=== PATIENT | female | born 1935 | race Caucasian/White ===

== ENCOUNTER 2021-07-09 05:08 | Emergency (ER) | payer MEDICARE, OTHER, SELFPAY ==
[2021-07-09] VITALS (19 sets, daily range): BP systolic 150–173; BP diastolic 56–79; PULSE 67–81; RESP 14–23; TEMP 37.6; O2SAT 95–100
--- NOTE | ~2021-07-09 | XR_ITS ---
EXAMINATION: XR chest 1V portable EXAM DATE: 07/09/2021 05:48 INDICATION: Transient alteration of awareness. TECHNIQUE: Portable AP frontal chest x-ray was obtained. There is no prior study for comparison. FINDINGS: There is a dual lead pacemaker/AICD seen with leads projecting over the expected locations of the right atrial appendage and right ventricle. The lungs are clear. There are no pleural effusio ns. The cardiomediastinal silhouette is prominent but magnified on this AP technique. There is no pneumothorax suspected. The bones and soft tissues are unremarkable. IMPRESSION: No acute cardiopulmonary findings. Reviewed, dictated and finalized at location A. ER STRAIGHTENER
--- NOTE | ~2021-07-09 | CT_ITS ---
EXAMINATION: CT brain wo con DATE: 07/09/2021 05:44 INDICATION: Altered mental status. TECHNIQUE: Computed tomography (CT) of the head was performed without intravenous contrast. The mA wa s adjusted according to patient size. Iterative reconstruction technique was employed. The dose-lengt h product was 605.33 mGy-cm. COMPARISON: None FINDINGS: There is an acute intraparenchymal hematoma involving left frontal lobe measuring 7 x 4.6 x 6.2 cm. There is adjacent subarachnoid hemorrhage in the left frontotemporal sulci. There is a left- sided frontotemporal parietal subdural hematoma that is mixed hyperdense and hypodense relative to gr ay matter with maximum thickness of 9 mm. There is chronic encephalomalacia involving inferior left t emporal lobe. There is chronic encephalomalacia involving right parietal temporal occipital region wi th ex vacuo dilatation of trigone and temporal horn of right lateral ventricle. There is chronic ence phalomalacia in right frontal lobe. There is 13 mm rightward subfalcine herniation. There is left-hayley ed uncal herniation. There is no acute ischemic infarct or abnormal mass lesion. There is mild mucosa l thickening in the paranasal sinuses. There are likely changes of ocular lens replacement surgeries. The mastoid air cells are normal. There are changes of right-sided craniotomy. IMPRESSION: 1. Acute intraparenchymal hematoma in left frontal lobe. Acute left frontotemporal subarachnoid hemor rhage. Left frontotemporal parietal subdural hematoma, likely acute on chronic. 2. 13 mm rightward subfalcine herniation. Left-sided uncal herniation. 3. Chronic encephalomalacia involving the right frontal, parietal, temporal, and occipital lobes and left temporal lobe. Reviewed, dictated and finalized at location B. [facility] INSURANCE ADVISER IMPRESSION: 1. Acute intraparenchymal hematoma in left frontal lobe. Acute left frontotempo ral subarachnoid hemorrhage. Left frontotemporal parietal subdural hematoma, lori brumfieldy acute on chronic. 2. 13 mm rightward subfalcine herniation. Left-sided uncal herniation. 3. Chronic encephalomalacia involving the right frontal, parietal, temporal, an d occipital lobes and left temporal lobe.
--- NOTE | 2021-07-09 05:11 | ECG_ITS ---
Measurements Intervals [place] Rate: 67 P: 72 IA: 161 QRS: 9 QRSD: 106 T: 7 QT: 388 QTc: 412 Interpretive Statements SINUS RHYTHM INCOMPLETE RIGHT BUNDLE BRANCH BLOCK DELAYED PRECORDIAL R/S TRANSITION BORDERLINE T WAVE ABNORMALITY- INFERIOR LEADS BASELINE ARTIFACT- I, II, III, AVR, AVL, AVF, V1-V6 BORDERLINE ECG Electronically Signed On 07-09-2021 6:42:38 FISH HATCHERY MAN by Hayden Morrison D.O.
--- NOTE | 2021-07-09 05:18 | ED.AMS ---
HPI - Altered Mental Status General Chief Complaint: Altered Mental Status <Charmaine Garrett MD - Last Filed: 07/09/21 07:46> Stated Complaint: ams - unresponsive to verbal, responsive to sterna <Charmaine Garrett MD - Last Filed: 07/09/21 07:46> Time Seen by Provider: 07/09/21 15:56 <Charmaine Garrett MD - Last Filed: 07/09/21 07:46> Source: family (son) and EMS <Charmaine Garrett MD - Last Filed: 07/09/21 07:46> Mode of arrival: EMS <Charmaine Garrett MD - Last Filed: 07/09/21 07:46> Limitations: altered mental status <Charmaine Garrett MD - Last Filed: 07/09/21 07:46> History of Present Illness HPI narrative: Patient is an 86-year-old female with a history of intracranial hemorrhage, CVA with aphasia, diastolic heart failure, paroxysmal atrial fibrillation, hypertension vascular dementia, presenting for evaluation of altered mental status. Patient resides at [facility] where she had a morning check performed on her and staff found her to be difficult to awaken. She was not verbally responsive. Patient did seem to be moving all 4 extremities but did not open her eyes. EMS was called and patient was transported to our facility for evaluation. Patient is not able to provide any history. She does respond to some verbal and painful stimuli. There are no focal deficits on exam. History is otherwise limited from the patient. Son arrived shortly after and is at bedside, does explain that typically she is somewhat conversant but he often has to finish her sentences. He states that she was hospitalized in May for an intracranial hemorrhage at [facility] in [place] where she had [address] scans[address] He denies any surgical procedures without hospitalization. 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 He states that she does have a history of surgery for this in 2018. Patient had been residing in [place], however due to her medical illnesses, son had her care transferred down to this area so now she is residing at [facility] and he has assumed medical power of estate attorney. Apparently, patient was last seen normal mentation yesterday evening. <Charmaine Garrett MD - Last Filed: 07/09/21 07:46> Related Data Home Medications: Home Medications Medication Instructions Recorded Confirmed atorvastatin 20 mg PO DAILY 07/09/21 docusate sodium 100 mg PO DAILY 07/09/21 gabapentin 300 mg PO DAILY 07/09/21 levetiracetam 500 mg PO BID 07/09/21 lisinopril 20 mg PO DAILY 07/09/21 melatonin 5 mg PO HS PRN 07/09/21 metoprolol tartrate 25 mg PO BID 07/09/21 pantoprazole 40 mg PO QAM 07/09/21 trazodone 50 mg PO HS 07/09/21 vit C,L-Lo-mfybq-lutein-zeaxan PO 07/09/21 [PreserVision AREDS-2] <Charmaine Garrett MD - Last Filed: 07/09/21 07:46> Allergies/Adverse Reactions: Allergies Allergy/AdvReac Type Severity Reaction Status Date / Time No Known Allergies Allergy Verified 07/09/21 05:56 <Charmaine Garrett MD - Last Filed: 07/09/21 07:46> Review of Systems Review of Systems: ROS unobtainable: Yes unobtainable due to mental status <Charmaine Garrett MD - Last Filed: 07/09/21 07:46> [facility] Social History Social History: Social History (Updated 07/09/21 @ 05:23 by Charmaine Garrett MD) Smoking status: Never smoker Alcohol intake: never Substance use: never Living arrangements: [facility] Gender identity (if verbalized by the patient): Female <Charmaine Garrett MD - Last Filed: 07/09/21 07:46> Exam Narrative: GENERAL: Eyes closed on bed, sitting upright HEAD: Normocephalic, atraumatic. EYES: 2+ PERRLA, equal and reactive, pt not able to track ENT: Nares clear, no rhinorrhea or epistaxis. Mucous membranes moist. NECK: Supple. CHEST: No respiratory distress, breathing even and non labored HEART: Regular rate, sinus rhythm ABDOMEN:Non distended, no grimace with palpation of the abdomen, abdomen is s
[2021-07-09] MEDS: SODIUM CHLORIDE 0.9% IV 1,000 ML 999 ML IV CONT (05:24)
[2021-07-09 05:41] LABS: Basophils Percent Auto 0.2 % (0.2-1.2); Eosinophils Percent Auto 0.2 % (0-4.4); Hematocrit 39.6 % (37.0-47.0); Hemoglobin 13.6 g/dL (12.0-15.0); Immature Granulocyte Absolute 0.06 K/mm3 (0.00-0.031); Immature Granulocyte Percent A 0.4 % (0-0.5); Lymphocytes Absolute Auto 0.78 K/mm3 (0.9-3.2); Mean Corpuscular HGB Conc 34.3 g/dl (32-36); Mean Corpuscular Hemoglobin 32.4 pg (26-34); Mean Corpuscular Volume 94.3 fl (80-100); Monocytes Absolute Auto 0.7 K/mm3 (0.1-0.6); Monocytes Percent Auto 4.6 % (2.6-8.5); Neutrophils Absolute Auto 13.9 K/mm3 (1.3-6.7); Neutrophils Percent Auto 89.6 % (45.5-73.1); Platelet Count Result 257 k/mm3 (150-375); Red Cell Distribution Width 11.9 % (11.5-14.5); White Blood Count 15.5 K/mm3 (4.5-10.0)
[2021-07-09 05:55] LABS: Ammonia < 9 umol/L (9-30)
[2021-07-09 06:01] LABS: Alanine Aminotransferase 17 U/L (4-35); Albumin Level 4.3 g/dL (3.5-5.1); Alkaline Phosphatase 106 U/L (38-126); Anion Gap 7 mmol/L (8-16); Aspartate Amino Transferase 26 U/L (14-36); Bilirubin,Total 0.5 mg/dL (0.2-1.3); Blood Urea Nitrogen 15 mg/dL (7-17); Calcium 9.3 mg/dL (8.4-10.2); Carbon Dioxide 28 mmol/L (22-30); Chloride 101 mmol/L (98-107); Estimated Glomerular Filt Rate > 60; Glucose 146 mg/dL (65-110); Potassium 4.2 mmol/L (3.4-5.0); Sodium 136 mmol/L (137-145)
[2021-07-09 06:13] LABS: Troponin I < 0.012 ng/mL (0.000-0.034)
[2021-07-09 06:25] LABS: Thyroid Stimulating Hormone 0.643 uIU/mL (0.465-4.680)
[2021-07-09 06:51] LABS: Add Urine Microscopic? NO; Appearance Urine Clear (Clear); Bilirubin Urine Negative (Negative); Blood Urine Negative (Negative); Color Urine Yellow (Yellow); Glucose Urine UA Negative (Negative); Ketones Urine Negative (Negative); Leukocyte Esterase Ur Negative LEU/UL (Negative); Nitrate Urine Negative (Negative); Protein Urine Negative (Negative); Specific Grav Ur 1.016 (1.001-1.035); Urobilinogen Urine Negative mg/dL (<2.0)
--- NOTE | 2021-07-09 07:20 | PC.NURSE ---
Report taken from AKIN Tomas.
--- NOTE | 2021-07-09 08:09 | PC.NURSE ---
Care coordination at bedside to speak with pt's family.
--- NOTE | 2021-07-09 08:30 | PCCCNOTE ---
Addendum entered by Bobbi Miles RN 07/09/21 15:56: [facility] has accepted transportation but it will not be until 7:30pm. Addendum entered by Bobbi Miles RN 07/09/21 15:01: [facility]UL notified that patient has chosen [facility] and would like a call once ambulance is transporting. Call office number at [phone]. Rapid Covid rceived as is negative, Faxed to [facility]. Addendum entered by Bobbi Miles RN 07/09/21 14:47: [facility]UL Family meeting completed at 1130, consents signed, does not qualify for GIP, spoke with son Baltazar he cannot do home hospice will need a facility and wants local with [facility] hospice. Faxed referrals to [facility], [facility], [facility] and [facility]. Spoke with Dory at [facility] able to accept today if able to secure financials with son needs negative covid. Spoke with Adilene at [facility] able to accept today if financials secured. Spoke with Thi at [facility] and able to accept with financials. Phone call received at 1450 from [facility] at [facility] they have accepted with [facility], she will need negative covid. Requested H/P and negative covid to [phone]. Patient will be going to Bed 2, Report to be called to [phone]. Called back to son, he confirms acceptance with [facility]. Is on a way to [place] to get her belongings and vaccination card, had received booster yesterday. Advised that we have swabbed his mom for covid and once negative will call ambulance once negative covid received. Will call with any updates. Addendum entered by Bobbi Miles RN 07/09/21 09:44: Baltazar has decided [facility], called [facility] for initiate referral, Fernanda in on her way to meet with son and assess for GIP. Hospice order has been placed will fax all demographics, H&P and order to [phone] Original Note: Called to ED to speak with family about hospice. Met at bedside with patient and son Baltazar. Patient is asleep. Baltazar is POA, and states that she has been at [facility] for the last week for rehab, Baltazar was advised that patient has had another brain bleed and would like to get hospice. States that he has had these conversations with the patient and feels that this is what she would want. Called to [facility] and spoke with Linh, she says that they primarily work with [facility] and if the patient does not qualify for GIP and son would want patient to go to [facility] on hospice would need to discuss finances with son and get approval. They primarily work with [facility]. Provided son with list of hospice agencies and explained GIP vs hospice at intermediate and updated per Linh's information. Baltazar is looking and list and discussing with family. Director Surgical will check back with decision.
--- NOTE | 2021-07-09 09:16 | PC.NURSE ---
Pt's son requesting to speak with physician regarding questions he has about his mothers condition. Dr. Stockton made aware and asked to speak with pt's son and address questions.
--- NOTE | 2021-07-09 09:22 | PC.NURSE ---
Dr. Stockton at bedside to speak with pt's son.
--- NOTE | 2021-07-09 10:41 | PC.NURSE ---
Hospice admission coordinator conducting family meeting at this time. No change in pt condition.
--- NOTE | 2021-07-09 13:40 | PC.NURSE ---
Care coordination still attempting to find placement.
--- NOTE | 2021-07-09 14:39 | PC.NURSE ---
Pt has been accepted to a facility pending a negative COVID test. Rapid COVID swab collected and sent to lab. No change in pt condition noted. Pt sleeping on stretcher. Minimal response to stimulation. Pt does not open eyes. Slight movement of extremities when performing COVID test. VSS.
[2021-07-09 14:56] LABS: EDCOVIDSCREEN Negative (Negative)
--- NOTE | 2021-07-09 15:07 | PC.NURSE ---
made contact with [employer] to transferet
--- NOTE | 2021-07-09 15:14 | PC.NURSE ---
made contact with [facility], [facility] and [facility] to transfer [facility] in [place]. all companies declined. made contact with [employer] accepted with [facility]
--- NOTE | 2021-07-09 15:18 | PC.NURSE ---
Pt accepted to [facility] in [place]. Report called to Jessica at [phone]. Multiple EMS contacted for transport. Ethan providing the soonest availability time at 1930 tonight.
--- NOTE | 2021-07-09 17:06 | PC.NURSE ---
Pt asleep on stretcher. Awaiting transport to [facility]. VSS.
--- NOTE | 2021-07-09 18:59 | PC.NURSE ---
Pt's son is at bedside. Awaiting transportation.
--- NOTE | 2021-07-09 20:22 | PC.NURSE ---
called with Ethan SALGADO now [phone]. family updated. provided comfort measures.
--- NOTE | 2021-07-09 22:58 | PC.NURSE ---
called Ethan SALGADO. Estimated 1 hr. family update. no requests at this time.
--- NOTE | 2021-07-10 00:09 | PC.NURSE ---
awaiting EMS for transfer. recliner, pillow and blanket provided for son. no requests at this time.
--- NOTE | 2021-07-10 00:27 | PC.NURSE ---
Contact [employer] for status update. ETA now another 45minutes-1hr
[2021-07-10 01:22] VITALS: BP 166/64; PULSE 63; RESP 18; O2SAT 98
[2021-07-10 02:06] VITALS: BP 137/58; PULSE 60; RESP 22; O2SAT 95
--- NOTE | 2021-07-10 02:10 | PC.NURSE ---
Called [facility] and spoke to Elisa Bliss at [phone] and gave update on pt status per request.
== END 2021-07-10 02:20 | disposition hospice, inpatient (51) ==
PROVIDERS: Emergency Medicine; Emergency Provider Emergency Medicine; PCP Family Medicine
DX: Z20.822 Contact with and (suspected) exposure to COVID-19 (principal); I62.9 Nontraumatic intracranial hemorrhage, unspecified; R41.841 Cognitive communication deficit; R40.2430 Glasgow coma scale score 3-8, unspecified time; I10 Essential (primary) hypertension; I50.9 Heart failure, unspecified; I48.91 Unspecified atrial fibrillation
CPT/HCPCS: 36415; 51701; 70450; 71045; 80053; 81003; 82140; 84443; 84484; 85025; 87426; 93005; 96360; 99291; C9803; J7030